=== PATIENT | female | born 1975 | race African-American/Black ===

== ENCOUNTER 2022-12-01 10:58 | Emergency (ER) | payer OTHER, SELFPAY ==
--- NOTE | ~2022-12-01 | XR_ITS ---
Right Shoulder Technique: AP and scapular Y views were obtained. Clinical History: Pain Findings: No fracture or dislocation is seen. Osseous alignment is anatomic. The glenohumeral and acr omioclavicular joint spaces are preserved. Soft tissues are unremarkable. Impression: Unremarkable right shoulder radiographs. Reviewed, dictated and finalized at [facility]. 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
[2022-12-01 11:32] VITALS: BP 126/87; PULSE 85; RESP 18; TEMP 36.6; O2SAT 100
--- NOTE | 2022-12-01 12:10 | ED.UPPEXIN ---
HPI - Extremity Injury (Upper) General Chief Complaint: Extremity Injury, Upper Stated Complaint: rt shoulder pain Source: patient Mode of arrival: ambulatory Limitations: no limitations History of Present Illness HPI narrative: 47-year-old female presents to [facility] with complaints of pain to her right shoulder radiating down her right arm for the past 2 weeks. Patient reports that she has intermittent numbness and tingling down her right arm. Patient denies injury to her arm. Patient has been taking [id number] ibuprofen and applying Biofreeze with minimal relief. Patient denies swelling, bruising, erythema. Patient reports that she has a primary care provider MD complaint: injury to: right and shoulder Onset (ago): week(s) (2) Other Extremity Injury: Right: shoulder Relieving factors: none Exacerbating factors: movement of extremity Associated symptoms: denies other symptoms Related Data Allergies Allergy/AdvReac Type Severity Reaction Status Date / Time No Known Allergies Allergy Verified 12/01/22 11:42 Review of Systems Constitutional: Constitutional: Denies fever(s) and Denies weakness ENT: Denies dizziness and Denies epistaxis Respiratory: Respiratory: Denies cough and Denies wheezing Gastrointestinal: Gastrointestinal: Denies diarrhea, Denies nausea and Denies vomiting Musculoskeletal: Musculoskeletal: Reports arthralgias Comments: Right shoulder pain Integumentary/Breasts: Skin/Breast: Denies pruritus, Denies erythema, Denies rash and Denies skin ulcer Neurologic: Denies vertigo and Denies dizziness PMFSH Comments At time of signature, I agree with nursing past medical, surgical, social and family history. There is no relevant family history pertinent to the presenting complaint. Exam Const: General: healthy appearing and no acute distress Nutritional Appearance: well nourished Orientation/consciousness: patient oriented x3 Limitations: no limitations Eyes: Conjunctivae: conjunctivae normal Neck: Neck: normal visual inspection Chest: Chest palpation & inspection: normal inspection of the chest Resp: Effort & Inspection: normal respiratory effort and not labored Auscultation: clear to auscultation bilaterally, no crackles, no rales, no rhonchi and no wheezes Cardio: Rate: regular rate Rhythm: regular rhythm Heart sounds: no murmurs Skin: General skin exam: normal color Rashes: no rashes Neuro: General: patient oriented x3, moves all extremities, no meningeal signs and no focal motor deficits Cranial nerves: Yes Nystagmus not present Speech: normal speech Extrem: General: normal to inspection, no clubbing, cyanosis or edema and no pedal edema Other: Full range of motion of the right shoulder. Pulses are within normal limits. Patient reports increased pain with range of motion to her right arm. Hand grasps are equal and strong. Psych: Affect: normal affect Attitude: cooperative Course Course Level of Care: Express Care Visit Vital Signs Vital signs: Vital Signs Temperature 36.6 C 12/01/22 11:32 Pulse Rate 85 12/01/22 11:32 Respiratory Rate 18 12/01/22 11:32 Blood Pressure 126/87 12/01/22 11:32 Pulse Oximetry 100 12/01/22 11:32 Oxygen Delivery Room Air 12/01/22 11:32 Temperature 36.6 C 12/01/22 11:32 Pulse Rate 85 12/01/22 11:32 Respiratory Rate 18 12/01/22 11:32 Blood Pressure 126/87 12/01/22 11:32 Pulse Oximetry 100 12/01/22 11:32 Oxygen Delivery Room Air 12/01/22 11:32 MDM - Extremity Injury (Upper) MDM Narrative Medical decision making narrative: Why surfaces the patient. Encouraged patient to establish care with local primary care provider as soon as possible to follow-up on chronic shoulder pain or to follow up with local orthopedist to discuss symptoms. Instructed patient to monitor symptoms closely and proceed to the emergency room if symptoms worsen Differential Diagnosis Differential diagnosis: Likely ot
== END 2022-12-01 12:59 | disposition home or self-care (01) ==
PROVIDERS: Emergency Provider Nurse Practitioner Family
DX: M25.511 Pain in right shoulder (principal)
CPT/HCPCS: 73030; 99203; G0463

== ENCOUNTER 2023-02-06 15:50 | Outpatient (CLI) | payer OTHER, SELFPAY ==
--- NOTE | ~2023-02-06 | XR_ITS ---
Left Knee Technique: AP, lateral, and sunrise views were obtained. Clinical History: Effusion Findings: No fracture or dislocation is seen. Osseous alignment is anatomic. Joint spaces are preserv ed without degenerative or erosive change. Soft tissues are unremarkable. No joint effusion is seen. Impression: Unremarkable left knee radiographs. Reviewed, dictated and finalized at location . Impression: Unremarkable left knee radiographs.
--- NOTE | ~2023-02-06 | XR_ITS ---
Right Knee Technique: AP, lateral, and sunrise views were obtained. Clinical History: Effusion Findings: No fracture or dislocation is seen. Osseous alignment is anatomic. Joint spaces are preserv ed without degenerative or erosive change. Soft tissues are unremarkable. No joint effusion is seen. Impression: Unremarkable right knee radiographs. Reviewed, dictated and finalized at location . Impression: Unremarkable right knee radiographs.
[2023-02-06 18:02] LABS: Hemoglobin A1C 5.5 % (<5.7)
[2023-02-06 18:08] LABS: Alanine Aminotransferase 31 U/L (6-35); Albumin Level 4.3 g/dL (3.5-5.1); Alkaline Phosphatase 77 U/L (38-126); Anion Gap 7 mmol/L (8-16); Aspartate Amino Transferase 33 U/L (14-36); Blood Urea Nitrogen 13 mg/dL (7-17); Calcium 9.5 mg/dL (8.4-10.2); Carbon Dioxide 25 mmol/L (22-30); Chloride 106 mmol/L (98-107); Cholesterol 222 mg/dL (0-200); Estimated Glomerular Filt Rate > 60; Glucose 84 mg/dL (65-110); HDL Direct 44 mg/dL; Sodium 138 mmol/L (137-145); Triglycerides 160 mg/dL (<150)
[2023-02-06 18:12] LABS: LDL Cholesterol Direct 110 mg/dL
[2023-02-06 18:17] LABS: Bilirubin,Total 0.5 mg/dL (0.2-1.3)
[2023-02-06 18:30] LABS: Thyroid Stimulating Hormone 0.347 uIU/mL (0.465-4.680)
[2023-02-11 04:56] LABS: FSH 114.1 mIU/mL (***); LH 50.6 mIU/mL (***); Progesterone 0.3 ng/mL (***)
[2023-02-11 16:28] LABS: Testosterone Free 1.6 pg/mL (0.1-6.4); Testosterone Total 13 ng/dL (2-45)
[2023-02-15 22:53] LABS: Estrogen 106.9 pg/mL
== END 2023-02-06 15:51 | disposition home or self-care (01) ==
PROVIDERS: PCP Family Medicine; Visit Provider Family Medicine
DX: Z00.00 Encounter for general adult medical examination without abnormal findings (principal); F32.A Depression, unspecified; F41.9 Anxiety disorder, unspecified; E66.9 Obesity, unspecified; M25.469 Effusion, unspecified knee; M25.569 Pain in unspecified knee
CPT/HCPCS: 36415; 73562; 80053; 80061; 82672; 83001; 83002; 83036; 84144; 84402; 84403; 84443

== ENCOUNTER 2023-02-10 10:32 | Outpatient (CLI) | payer OTHER, SELFPAY ==
--- NOTE | ~2023-02-10 | XR_ITS ---
EXAMINATION: XR hip LT 2V w AP pelvis INDICATION: Left hip effusion TECHNIQUE: AP view the pelvis and two views of the left hip are obtained. COMPARISON: None available FINDINGS: There are surgical changes of the left iliac wing. The femoral heads are well-seated in the ir acetabula. There is no fracture. No abnormal joint space widening is identified. IMPRESSION: 1. No acute osseous abnormality. Reviewed, dictated and finalized at location L.
== END 2023-02-10 10:33 | disposition home or self-care (01) ==
LOC: ANHBWCIMG 10:34
PROVIDERS: PCP Family Medicine; Visit Provider Family Medicine
DX: M25.452 Effusion, left hip (principal)
CPT/HCPCS: 73502

== ENCOUNTER 2023-03-19 00:05 | Day surgery (SDC) | payer OTHER, SELFPAY ==
[2023-03-02 11:50] VITALS: BMI 38.9
[2023-03-19 09:24] VITALS: BP 111/91; PULSE 76; RESP 18; TEMP 36.3; O2SAT 100
--- NOTE | 2023-03-19 09:36 | PM.HPGS ---
History of Present Illness History of Present Illness Consent: Risks, benefits, and alternatives have been discussed and questions answered. Patient agrees to proceed with procedure. Chief complaint: GERD, neoplasm screening Narrative: Shala Gan is a 48 year old female Presents for both colonoscopy and EGD. Patient desires neoplasia screening colonoscopy. She reports her weight appetite and bowel movements are normal. She denies abdominal pain. She has had no bleeding. Family history is noncontributory. Additionally patient complains of occasional heartburn. Apparently this been present for several years. She was started on omeprazole 20mg p.o. daily over the last several weeks and this seems to control her heartburn. Patient denies any dysphagia, bleeding or weight loss. Review of Systems Review of Systems: Review of systems noncontributory. [facility] Past Medical History Medical History Anxiety Social History Social History Smoking status: Former smoker Tobacco type: e-cigarettes/vaping Alcohol intake: current Alcohol use details: occasional Substance use: former Substance use type: marijuana Lack of Transportation: No Lack of Food: Sometimes True Current Housing: I Do Not Have Housing Concerned About Future Housing: No Difficulty Paying Gas/Electric Bills: No Difficulty Paying for Meds: No Currently Unemployed: No Education: High School Diploma/GED Difficulty w/ Childcare or Family Care: No Living arrangements: with family Spiritual care concerns: No Meds Home Medications and Allergies Home Medications Medication Instructions Recorded Confirmed Type fexofenadine 180 mg tablet 180 mg PO DAILY #90 tabs 02/06/23 03/02/23 Rx (Purnima Allergy) omeprazole 20 mg capsule,delayed 20 mg PO DAILY #90 caps 02/06/23 03/02/23 Rx release ascorbic acid (vitamin C) 500 mg 500 mg PO DAILY 03/02/23 03/02/23 History tablet mecobalamin (vitamin B12) 2,500 2,500 mcg PO DAILY 03/02/23 03/02/23 History mcg chewable tablet phentermine 37.5 mg capsule 37.5 mg PO DAILY #30 caps 03/11/23 03/19/23 Rx topiramate 25 mg tablet 25 mg PO DAILY #30 tabs 03/11/23 03/19/23 Rx Allergies Allergy/AdvReac Type Severity Reaction Status Date / Time No Known Allergies Allergy Verified 03/19/23 09:22 Vital Signs Vital Signs - 24 hr 03/19/23 09:24 Temperature 97.4 F L Pulse Rate 76 Respiratory Rate 18 Blood Pressure 111/91 H Pulse Oximetry 100 Oxygen Delivery Room Air Exam Narrative: Physical exam reveals patient to be alert. Vital signs stable. HEENT exam is unremarkable. Patient is anicteric. Lungs are clear to auscultation and percussion. Heart is without murmur or extra sounds. Abdomen patient is overweight. She has a small ventral hernia. Extremities are without clubbing cyanosis or edema. Assessment and Plan Assessment and plan (1) GERD (gastroesophageal reflux disease): Code(s): K21.9 - Gastro-esophageal reflux disease without esophagitis Status: Acute Assessment and Plan: patient is stable GE reflux disease that has been present for several years. Plan EGD to assess and exclude Jaramillo's esophagus. (2) Encounter for screening colonoscopy: Code(s): Z12.11 - Encounter for screening for malignant neoplasm of colon Status: Acute Assessment and Plan: Patient presents for screening colonoscopy. She appears to be at average risk for colon polyps.
[2023-03-19] MEDS: LACTATED RINGERS 1,000 ML 150 ML IV CONT (09:38)
--- NOTE | 2023-03-19 10:23 | P.PNAN_ITS ---
Anes - Initial Pre Proc Eval Procedure: Operation Date: 03/19/23 10:45 Proposed Procedures p Esophagogastroduodenoscopy & Screening Colonoscopy - Angelito Robertson MD Date/Time: 03/19/23 10:23 Surgeon: Angelito Robertson MD Pre Op Diagnosis: GERD, neoplasm screening Patient Data Age: 48 Gender: F Height: 1.63 m Weight: 103.6 kg Last Vital Signs Temp 97.4 F L 03/19/23 09:24 Pulse 76 03/19/23 09:24 Resp 18 03/19/23 09:24 BP 111/91 H 03/19/23 09:24 Pulse Ox 100 03/19/23 09:24 O2 Del Method Room Air 03/19/23 09:24 Allergies Allergy/AdvReac Type Severity Reaction Status Date / Time No Known Allergies Allergy Verified 03/19/23 09:22 Home Medications Medication Instructions Recorded Confirmed Type fexofenadine 180 mg tablet 180 mg PO DAILY #90 tabs 02/06/23 03/02/23 Rx (Purnima Allergy) omeprazole 20 mg capsule,delayed 20 mg PO DAILY #90 caps 02/06/23 03/02/23 Rx release ascorbic acid (vitamin C) 500 mg 500 mg PO DAILY 03/02/23 03/02/23 History tablet mecobalamin (vitamin B12) 2,500 2,500 mcg PO DAILY 03/02/23 03/02/23 History mcg chewable tablet phentermine 37.5 mg capsule 37.5 mg PO DAILY #30 caps 03/11/23 03/19/23 Rx topiramate 25 mg tablet 25 mg PO DAILY #30 tabs 03/11/23 03/19/23 Rx Patient hx anesthesia problems: none Family hx anesthesia problems: none Results Review: All pre-operative results and documents have been reviewed as part of the pre- operative evaluation. [facility] Past Medical History Medical History Anxiety Social History Social History Smoking status: Former smoker Tobacco type: e-cigarettes/vaping Alcohol intake: current Alcohol use details: occasional Substance use: former Substance use type: marijuana Lack of Transportation: No Lack of Food: Sometimes True Current Housing: I Do Not Have Housing Concerned About Future Housing: No Difficulty Paying Gas/Electric Bills: No Difficulty Paying for Meds: No Currently Unemployed: No Education: High School Diploma/GED Difficulty w/ Childcare or Family Care: No Living arrangements: with family Spiritual care concerns: No Anes - Eval Final PreProcedure Day of Procedure 03/19/23 10:23 Patient weight: morbidly obese Heart: regular rate and rhythm Lungs: clear to auscultation Airway: Mallampati scale class III Neurological: alert and oriented Last oral intake: >/= 8 hours ASA classification: III Emergent: no Anesthetic plan: proceed Anesthesia type and monitoring: general GIVS and standard monitoring Results Review: All pre-operative results and documents have been reviewed as part of the pre- operative evaluation. Informed Consent: The patient's anesthetic plan and its attendant risks and benefits were discussed with the patient/family/POA. Questions were solicited and answers provided to the satisfaction of the patient/family/POA.
[2023-03-19 11:08] VITALS: BP 109/73; PULSE 97; RESP 16; O2SAT 99
[2023-03-19 11:18] VITALS: BP 117/83; PULSE 77; RESP 23; O2SAT 99
[2023-03-19 11:28] VITALS: BP 140/89; PULSE 79; RESP 16; O2SAT 100
== END 2023-03-19 11:48 | disposition home or self-care (01) ==
PROVIDERS: PCP Family Medicine; Visit Provider Internal Medicine Gastroenterology
PROC: 0DJ08ZZ Inspection of Upper Intestinal Tract, Via Natural or Artificial Opening Endoscopic (ICD-10-PCS; CPT 43235; principal; 2023-03-19 10:45)
DX: Z12.11 Encounter for screening for malignant neoplasm of colon (principal); D12.5 Benign neoplasm of sigmoid colon; K64.8 Other hemorrhoids; K57.30 Diverticulosis of large intestine without perforation or abscess without bleeding; K21.00 Gastro-esophageal reflux disease with esophagitis, without bleeding; K44.9 Diaphragmatic hernia without obstruction or gangrene; Q39.4 Esophageal web; K29.80 Duodenitis without bleeding; Z87.891 Personal history of nicotine dependence; E66.01 Morbid (severe) obesity due to excess calories; Z68.39 Body mass index [BMI] 39.0-39.9, adult
CPT/HCPCS: 45385; 43450; 43239; 87081; 88305; J2704; J7120

== ENCOUNTER 2023-04-24 11:07 | Outpatient (CLI) | payer OTHER, SELFPAY ==
[2023-04-24 12:31] LABS: Free T4 Free Thyroxine 1.22 ng/mL (0.78-2.19)
== END 2023-04-24 11:08 | disposition home or self-care (01) ==
LOC: ANHLAB 11:09
PROVIDERS: PCP Family Medicine; Visit Provider Family Medicine
DX: R79.89 Other specified abnormal findings of blood chemistry (principal)
CPT/HCPCS: 36415; 84439; 84443

== ENCOUNTER 2023-05-07 13:00 | Outpatient (CLI) | payer OTHER, SELFPAY ==
[2023-05-07 13:32] LABS: Hematocrit 41.7 % (37.0-47.0); Hemoglobin 12.9 g/dL (12.0-15.0); Mean Corpuscular HGB Conc 30.9 g/dl (32-36); Mean Corpuscular Hemoglobin 26.1 pg (26-34); Mean Corpuscular Volume 84.2 fl (80-100); Mean Platelet Volume 10.8 fl (7.4-10.4); Platelet Count Result 275 k/mm3 (150-375); Red Blood Count 4.95 M/mm3 (4.2-5.4); Red Cell Distribution Width 14.6 % (11.5-14.5); White Blood Count 4.4 K/mm3 (4.5-10.0)
[2023-05-07 13:38] LABS: Alanine Aminotransferase 36 U/L (6-35); Albumin Level 4.2 g/dL (3.5-5.1); Alkaline Phosphatase 75 U/L (38-126); Anion Gap 1 mmol/L (8-16); Aspartate Amino Transferase 28 U/L (14-36); Bilirubin,Total 0.4 mg/dL (0.2-1.3); Blood Urea Nitrogen 10 mg/dL (7-17); Calcium 9.5 mg/dL (8.4-10.2); Carbon Dioxide 31 mmol/L (22-30); Chloride 106 mmol/L (98-107); Estimated Glomerular Filt Rate > 60; Glucose 91 mg/dL (65-110); Potassium 4.4 mmol/L (3.4-5.0); Sodium 138 mmol/L (137-145)
[2023-05-07 14:09] LABS: Thyroid Stimulating Hormone 0.282 uIU/mL (0.465-4.680)
[2023-05-07 14:38] LABS: Vitamin D 25 Hydroxy 28.2 ng/mL
== END 2023-05-07 13:01 | disposition home or self-care (01) ==
LOC: ANHLAB 13:02
PROVIDERS: PCP Family Medicine; Visit Provider Family Medicine
DX: R53.83 Other fatigue (principal)
CPT/HCPCS: 36415; 80053; 82306; 84443; 85027

== ENCOUNTER 2023-05-13 10:01 | Outpatient (CLI) | payer OTHER, SELFPAY ==
[2023-05-13 10:27] LABS: Hematocrit 39.7 % (37.0-47.0); Hemoglobin 12.4 g/dL (12.0-15.0); Mean Corpuscular HGB Conc 31.2 g/dl (32-36); Mean Corpuscular Hemoglobin 25.7 pg (26-34); Mean Corpuscular Volume 82.4 fl (80-100); Mean Platelet Volume 10.9 fl (7.4-10.4); Platelet Count Result 232 k/mm3 (150-375); Red Blood Count 4.82 M/mm3 (4.2-5.4); Red Cell Distribution Width 14.5 % (11.5-14.5); White Blood Count 4.4 K/mm3 (4.5-10.0)
[2023-05-13 10:40] LABS: Alanine Aminotransferase 39 U/L (6-35); Alkaline Phosphatase 66 U/L (38-126); Aspartate Amino Transferase 39 U/L (14-36); Bilirubin,Total 0.3 mg/dL (0.2-1.3)
[2023-05-13 11:04] LABS: Free T4 Free Thyroxine 1.27 ng/mL (0.78-2.19)
[2023-05-16 06:08] LABS: Thyroid Peroxidase Antibodies <1 IU/mL (<9)
== END 2023-05-13 10:02 | disposition home or self-care (01) ==
LOC: ANHLAB 10:04
PROVIDERS: PCP Family Medicine; Visit Provider Family Medicine
DX: R79.89 Other specified abnormal findings of blood chemistry (principal); D72.819 Decreased white blood cell count, unspecified; R53.83 Other fatigue
CPT/HCPCS: 36415; 80076; 84439; 85027; 86376

== ENCOUNTER 2023-06-10 10:26 | Outpatient (CLI) | payer OTHER, SELFPAY ==
[2023-06-10 11:27] LABS: Basophils Absolute Auto 0.1 K/mm3 (0.0-0.1); Basophils Percent Auto 1.5 % (0.2-1.2); Eosinophils Absolute Auto 0.2 K/mm3 (0-0.3); Eosinophils Percent Auto 3.4 % (0-4.4); Hematocrit 43.8 % (37.0-47.0); Hemoglobin 13.4 g/dL (12.0-15.0); Immature Granulocyte Absolute 0.03 K/mm3 (0.00-0.031); Immature Granulocyte Percent A 0.6 % (0-0.5); Lymphocytes Absolute Auto 1.45 K/mm3 (0.9-3.2); Mean Corpuscular HGB Conc 30.6 g/dl (32-36); Mean Platelet Volume 11.3 fl (7.4-10.4); Monocytes Absolute Auto 0.5 K/mm3 (0.1-0.6); Monocytes Percent Auto 9.6 % (2.6-8.5); Neutrophils Absolute Auto 2.5 K/mm3 (1.3-6.7); Neutrophils Percent Auto 53.9 % (45.5-73.1); Platelet Count Result 291 k/mm3 (150-375); Red Blood Count 5.15 M/mm3 (4.2-5.4); Red Cell Distribution Width 14.5 % (11.5-14.5); White Blood Count 4.7 K/mm3 (4.5-10.0)
[2023-06-10 11:40] LABS: Alanine Aminotransferase 41 U/L (6-35); Albumin Level 4.1 g/dL (3.5-5.1); Alkaline Phosphatase 83 U/L (38-126); Aspartate Amino Transferase 36 U/L (14-36); Bilirubin,Total 0.4 mg/dL (0.2-1.3)
[2023-06-10 12:12] LABS: Hepatitis B Surface Antigen Negative (Negative)
[2023-06-10 12:18] LABS: HAV RESULT Negative (Negative); Hepatitis B Core IgM Result Negative (Negative)
[2023-06-10 12:29] LABS: Hepatitis C Virus Antibody Negative (Negative)
== END 2023-06-10 10:27 | disposition home or self-care (01) ==
LOC: ANHLAB 10:27
PROVIDERS: PCP Family Medicine; Visit Provider Family Medicine
DX: R79.89 Other specified abnormal findings of blood chemistry (principal); R74.8 Abnormal levels of other serum enzymes; D72.819 Decreased white blood cell count, unspecified
CPT/HCPCS: 36415; 80074; 80076; 84443; 85025

== ENCOUNTER 2023-06-25 10:08 | Outpatient (CLI) | payer OTHER, SELFPAY ==
--- NOTE | ~2023-06-25 | MM_ITS ---
EXAMINATION: MM screening roverto BI w sonia HISTORY: Screening mammogram TECHNIQUE: Craniocaudal and mediolateral oblique 3-D tomosynthesis images were obtained and synthetic 2-D images were generated. CAD analysis was submitted and interpreted. COMPARISON: No prior mammogram is available for comparison at this institution. BREAST PARENCHYMAL COMPOSITION: There are scattered areas of fibroglandular density. FINDINGS: There is no evidence of suspicious mass, calcification, or architectural distortion to sugg est malignancy in either breast. There has been no suspicious interval change. IMPRESSION: 1. No mammographic evidence of malignancy. 2. Recommend routine screening mammography in one year. BI-RADS Category 1: Negative Reviewed, dictated and finalized at location A.
== END 2023-06-25 10:09 | disposition home or self-care (01) ==
PROVIDERS: PCP Family Medicine; Visit Provider Family Medicine
DX: Z12.31 Encounter for screening mammogram for malignant neoplasm of breast (principal)
CPT/HCPCS: 77063; 77067

== ENCOUNTER 2023-07-06 09:36 | Outpatient (CLI) | payer OTHER, SELFPAY ==
--- NOTE | ~2023-07-06 | US_ITS ---
US abdomen limited INDICATION: Abnormal levels of serum enzymes PROCEDURE: Realtime right upper abdominal ultrasound. COMPARISON: No prior studies for comparison. FINDINGS: The pancreas is normal without focal mass or pancreatic ductal dilation. Liver echotexture is normal without focal mass or intrahepatic biliary dilatation. There is normal directional flow i n the portal vein. The gallbladder is normal without stones, gallbladder wall thickening or pericholecystic fluid. Comm on bile duct measures 4 mm. No sonographic Patiño's sign. IMPRESSION: 1: Normal limited abdominal ultrasound. Reviewed, dictated and finalized at location A.
== END 2023-07-06 09:37 | disposition home or self-care (01) ==
PROVIDERS: PCP Family Medicine; Visit Provider Family Medicine
DX: R74.8 Abnormal levels of other serum enzymes (principal)
CPT/HCPCS: 76705

== ENCOUNTER 2023-08-04 09:11 | Outpatient (CLI) | payer OTHER, SELFPAY ==
--- NOTE | 2023-08-25 15:07 | WPDHOMESLEEP ---
Sleep Study - Home Unattended Date of Study: 08/04/23 Ordering Provider: Benito Álvarez MD Interpreting Provider: Radha Palacios DO Home Sleep Study Type: Watch PAT Height: 1.65 m Weight: 105.233 kg Body Mass Index: 38.6 Neck Circumference (inches): 14 [place]: 8 Reason for Sleep Study Snoring Sleep History The patient is a 48-year-old female with seasonal allergies, GERD and history of tobacco use that had a sleep study ordered by her primary care for evaluation of sleep apnea. The patient did not fill out the sleep questionnaire packet. [facility] Past Medical History Medical History Anxiety Social History Social History Smoking status: Former smoker Tobacco type: e-cigarettes/vaping Alcohol intake: current Alcohol use details: occasional Substance use: former Substance use type: marijuana Lack of Transportation: No Lack of Food: Sometimes True Current Housing: I Do Not Have Housing Concerned About Future Housing: No Difficulty Paying Gas/Electric Bills: No Difficulty Paying for Meds: No Currently Unemployed: No Education: High School Diploma/GED Difficulty w/ Childcare or Family Care: No Living arrangements: with family Spiritual care concerns: No Medications Home Medications Medication Instructions Recorded Confirmed Type fexofenadine 180 mg tablet 180 mg PO DAILY #90 tabs 02/06/23 07/14/23 Rx (Purnima Allergy) omeprazole 20 mg capsule,delayed 20 mg PO DAILY #90 caps 02/06/23 07/14/23 Rx release ascorbic acid (vitamin C) 500 mg 500 mg PO DAILY 03/02/23 07/14/23 History tablet mecobalamin (vitamin B12) 2,500 2,500 mcg PO DAILY 03/02/23 07/14/23 History mcg chewable tablet hydroxyzine HCl 25 mg tablet 25 mg PO BID PRN insomnia #90 tabs 04/06/23 07/14/23 Rx azelastine 137 mcg (0.1 %) nasal 137 mcg (0.137 mL) intranasal Q12H 04/24/23 07/14/23 Rx spray aerosol #30 mL cetirizine 10 mg tablet (Zyrtec) 10 mg PO DAILY #90 tabs 04/24/23 07/14/23 Rx ipratropium bromide 21 mcg (0.03 2 spray intranasal BID #30 mL 04/24/23 07/14/23 Rx %) nasal spray montelukast 10 mg tablet 10 mg PO DAILY #90 tabs 04/24/23 07/14/23 Rx (Singulair) albuterol sulfate 90 mcg/actuation 1 inh inhalation Q4H PRN shortness 06/10/23 07/14/23 Rx aerosol inhaler of breath or wheezing #8.5 grams phentermine 37.5 mg capsule 37.5 mg PO DAILY #30 caps 07/21/23 Rx conj estrogen-medroxyprogesterone 1 tablet PO DAILY #28 tabs 08/03/23 Rx 0.3 mg-1.5 mg tablet (Prempro) Sleep Procedure The sleep study was completed using ShowbieT a technically adequate device with seven channels: peripheral arterial tone, actigraphy, body position, snore, respiratory movement, pulse oximetry, sleep staging, and heart rate. Prior to using the device, the patient received verbal and written instructions for its application and was provided with the help desk phone number for additional telephonic instruction with 24-hour availability of qualified personnel to answer questions. The study was scored using CMS guidelines. Sleep Architecture The patient had a total recording time of 7 hours 30 minutes and a total sleep time of 6 hours 11 minutes. The sleep efficiency was 82.47%. The sleep latency was 21 minutes and the REM latency was 54 minutes. The patient had 10 awakenings. The patient spent 57.37% of total sleep time in light sleep, 16.41% of total sleep time in deep sleep and 26.22% of total sleep time in REM sleep. The patient spent 215.3 minutes, 57.9% of total sleep time in the supine position. Respiratory Analysis The patient had an overall AHI of 1.2 and a central apnea index of 0. The REM AHI was 2.1. Kalpesh Decker respirations were not seen. Oximetry Data The patient had an average oxygen saturation of 93% with a minimum of 90% and a maximum of 99%. The patient had 6 desaturations that
[2023-08-25 15:12] VITALS: BMI 38.6
== END 2023-08-05 13:46 | disposition home or self-care (01) ==
LOC: ANHCSM 09:12
PROVIDERS: PCP Family Medicine; Visit Provider Family Medicine
DX: G47.30 Sleep apnea, unspecified (principal); R53.83 Other fatigue; E66.9 Obesity, unspecified; Z86.69 Personal history of other diseases of the nervous system and sense organs
CPT/HCPCS: 95800

== ENCOUNTER 2024-01-21 08:51 | Outpatient (CLI) | payer OTHER, SELFPAY ==
[2024-01-21 09:24] LABS: Hematocrit 47.5 % (37.0-47.0); Hemoglobin 14.4 g/dL (12.0-15.0); Mean Corpuscular HGB Conc 30.3 g/dl (32-36); Mean Corpuscular Hemoglobin 25.5 pg (26-34); Mean Corpuscular Volume 84.2 fl (80-100); Mean Platelet Volume 10.6 fl (7.4-10.4); Platelet Count Result 299 k/mm3 (150-375); Red Blood Count 5.64 M/mm3 (4.2-5.4); White Blood Count 4.4 K/mm3 (4.5-10.0)
[2024-01-21 09:37] LABS: Alanine Aminotransferase 33 U/L (6-35); Albumin Level 4.5 g/dL (3.5-5.1); Alkaline Phosphatase 80 U/L (38-126); Anion Gap 5 mmol/L (4-12); Aspartate Amino Transferase 33 U/L (14-36); Bilirubin,Total 0.4 mg/dL (0.2-1.3); Blood Urea Nitrogen 12 mg/dL (7-17); Calcium 10.1 mg/dL (8.4-10.2); Carbon Dioxide 29 mmol/L (22-30); Chloride 108 mmol/L (98-107); Cholesterol 282 mg/dL (0-200); Estimated Glomerular Filt Rate > 60; Glucose 100 mg/dL (65-110); HDL Direct 55 mg/dL; Potassium 4.4 mmol/L (3.4-5.0); Sodium 142 mmol/L (137-145); Triglycerides 132 mg/dL (<150)
[2024-01-21 09:48] LABS: LDL Cholesterol Direct 150 mg/dL
== END 2024-01-21 08:52 | disposition home or self-care (01) ==
LOC: ANHLAB 08:53
PROVIDERS: PCP Family Medicine; Visit Provider Family Medicine
DX: F32.A Depression, unspecified (principal); F41.9 Anxiety disorder, unspecified; J30.2 Other seasonal allergic rhinitis; K21.9 Gastro-esophageal reflux disease without esophagitis; R53.83 Other fatigue; R74.8 Abnormal levels of other serum enzymes; R79.89 Other specified abnormal findings of blood chemistry; Z00.00 Encounter for general adult medical examination without abnormal findings; Z86.69 Personal history of other diseases of the nervous system and sense organs
CPT/HCPCS: 36415; 80053; 80061; 85027

== ENCOUNTER 2024-05-27 12:07 | Outpatient (CLI) | payer OTHER, SELFPAY ==
--- NOTE | ~2024-05-27 | MMUS_ITS ---
EXAMINATION: MM diagnostic roverto BI w sonia, US breast LT limited HISTORY: Palpable left breast lump TECHNIQUE: Additional 3-D tomosynthesis images of the breasts were performed and synthetic 2-D images were generated. CAD analysis was submitted and interpreted. High resolution Limited left breast ultr asound was performed. COMPARISON: 06/25/2023 BREAST PARENCHYMAL COMPOSITION: Not dense: There are scattered areas of fibroglandular density. FINDINGS: MAMMOGRAPHIC FINDINGS: There are no suspicious masses, calcifications or architectural distortion in the either breast to lobo ggest malignancy. ULTRASOUND: Limited ultrasound of the left breast/chest wall: Normal heterogeneous echotexture without focal ligia d or cystic mass. IMPRESSION: 1. No evidence for malignancy in either breast. 2. Routine yearly screening mammogram and regular clinical breast examination are recommended. BI-RADS Category 1: Negative Reviewed, dictated and finalized at location B. IMPRESSION: 1. No evidence for malignancy in either breast. 2. Routine yearly screening mammogram and regular clinical breast examination a re recommended. BI-RADS Category 1: Negative
== END 2024-05-27 12:08 | disposition home or self-care (01) ==
LOC: ANHIMG 12:07
PROVIDERS: PCP Family Medicine; Visit Provider Family Medicine
DX: N64.4 Mastodynia (principal)
CPT/HCPCS: 76642; 77062; 77066; G0279

== ENCOUNTER 2024-08-15 10:11 | Outpatient (CLI) | payer OTHER, SELFPAY ==
[2024-08-15 10:58] LABS: Hematocrit 42.5 % (37.0-47.0); Hemoglobin 13.2 g/dL (12.0-15.0); Mean Corpuscular HGB Conc 31.1 g/dl (32-36); Mean Corpuscular Hemoglobin 26.1 pg (26-34); Mean Platelet Volume 11.1 fl (7.4-10.4); Platelet Count Result 269 k/mm3 (150-375); Red Blood Count 5.06 M/mm3 (4.2-5.4); Red Cell Distribution Width 14.7 % (11.5-14.5); White Blood Count 4.4 K/mm3 (4.5-10.0)
[2024-08-15 11:12] LABS: Alanine Aminotransferase 40 U/L (6-35); Albumin Level 4.3 g/dL (3.5-5.1); Alkaline Phosphatase 72 U/L (38-126); Anion Gap 8 mmol/L (4-12); Aspartate Amino Transferase 35 U/L (14-36); Bilirubin,Total 0.5 mg/dL (0.2-1.3); Blood Urea Nitrogen 12 mg/dL (7-17); Calcium 9.6 mg/dL (8.4-10.2); Carbon Dioxide 28 mmol/L (22-30); Chloride 107 mmol/L (98-107); Estimated Glomerular Filt Rate > 60; Glucose 85 mg/dL (65-110); Potassium 3.8 mmol/L (3.4-5.0); Sodium 143 mmol/L (137-145)
[2024-08-15 11:43] LABS: Thyroid Stimulating Hormone 0.631 uIU/mL (0.465-4.680)
== END 2024-08-15 10:12 | disposition home or self-care (01) ==
LOC: ANHLAB 10:13
PROVIDERS: PCP Family Medicine; Visit Provider Family Medicine
DX: Z00.00 Encounter for general adult medical examination without abnormal findings (principal); R74.8 Abnormal levels of other serum enzymes; R53.83 Other fatigue; R79.89 Other specified abnormal findings of blood chemistry; E66.9 Obesity, unspecified; F41.9 Anxiety disorder, unspecified; F32.A Depression, unspecified; K21.9 Gastro-esophageal reflux disease without esophagitis; J30.2 Other seasonal allergic rhinitis
CPT/HCPCS: 36415; 80053; 84443; 85027

== ENCOUNTER 2025-08-23 10:38 | Outpatient (CLI) | payer OTHER, SELFPAY ==
[2025-08-23 13:45] LABS: Hematocrit 46.6 % (37.0-47.0); Hemoglobin 14.6 g/dL (12.0-15.0); Immature Granulocyte Percent A 0.4 % (0-0.5); Lymphocytes Absolute Auto 1.43 K/mm3 (0.9-3.2); Mean Corpuscular HGB Conc 31.3 g/dl (32-36); Mean Corpuscular Hemoglobin 26.2 pg (26-34); Mean Corpuscular Volume 83.5 fl (80-100); Nucleated Red Blood Cells Absolute Auto 0.000 K/mm3 (0.0-0.012); Nucleated Red Blood Cells Perc 0.0 % (0.0-0.2); Platelet Count Result 320 k/mm3 (150-375); Red Blood Count 5.58 M/mm3 (4.2-5.4); White Blood Count 5.0 K/mm3 (4.5-10.0)
[2025-08-23 13:52] LABS: Alanine Aminotransferase 29 U/L (6-35); Albumin Level 4.7 g/dL (3.5-5.1); Alkaline Phosphatase 74 U/L (38-126); Anion Gap 8 mmol/L (4-12); Aspartate Amino Transferase 49 U/L (14-36); Bilirubin,Total 0.5 mg/dL (0.2-1.3); Blood Urea Nitrogen 14 mg/dL (7-17); Calcium 9.8 mg/dL (8.4-10.2); Carbon Dioxide 26 mmol/L (22-30); Chloride 104 mmol/L (98-107); Cholesterol 285 mg/dL (0-200); Estimated Glomerular Filt Rate 52; Glucose 83 mg/dL (65-110); HDL Direct 58 mg/dL; Potassium 4.2 mmol/L (3.4-5.0); Sodium 138 mmol/L (137-145); Total Protein 8.3 g/dL (6.3-8.2); Triglycerides 93 mg/dL (<150)
[2025-08-23 14:23] LABS: Thyroid Stimulating Hormone 0.408 uIU/mL (0.465-4.680)
[2025-08-23 14:42] LABS: Vitamin B12 624.0 pg/mL (239-931)
[2025-08-23 22:39] LABS: Iron 75 ug/dL (37-170)
[2025-08-23 22:49] LABS: Percent Iron Saturation 25 % (20-50)
[2025-08-23 23:21] LABS: Ferritin 48.90 ng/mL (6.24-137)
--- OUTSIDE RECORDS SUMMARY | 2025-08-24 10:16 | XMS_ITS | Clinical Summary ---
Author Organization [facility] al Address [address] [place] [address] Care Team Providers Care Coat Operator Name Role Phone Roel Pena MD Primary Care Provider + Allergies No known active allergies Medications No known medications Active Problems Problem Noted Date Diagnosed Date Essential hypertension 12/03/2020 Assessment & Plan (12/03/2020 11:27 AM SHORT STORY WRITER): Continue current Labs today Weight loss Diet and activity reviewed Left arm pain 12/03/2020 Assessment & Plan (12/03/2020 11:28 AM SHORT STORY WRITER): Suspect cervical radiculopathy, has had imaging at [facility] referral-if not improving will do cervical MRI Adnexal cyst 10/04/2018 Overview (10/04/2018): Added automatically from request for surgery [id number] Resolved Problems Problem Noted Date Diagnosed Date Resolved Date Vitamin D deficiency 12/03/2020 021 Pelvic mass in female 10/04/20182020 Overview (10/04/2018): Added automatically from request for surgery [id number] Eustachian tube dysfunction 08/12/2015 12/03/2020 Cerumen impaction 08/12/2015 12/03/2020 Ear pain 05/18/2014 12/03/2020 Knee pain 02/24/2011 12/03/2020 Surgical History Surgery Date Site/Laterality Comments [place] DELIVERY ONLY [place] - (Added by Conv) [place] TOTAL ABDOMINAL HYSTERECT W/WO RMVL TUBE OVARY Hysterectomy - (Added by Conv) CLOSED REDUCTION HIP DISLOCATION 10/19/1993 - 10/18/1994 Medical History Medical History Date Comments Vitamin D deficiency Vitamin D d eficiency - (Added by Conv) Breast lump Acid reflux Seasonal allergies Anxiety Sinusitis Family History Medical History Relation Name Comments Heart failure Mother Family history of congestive heart failure - (Added by TW Conv) Hypertension Mother Family history of hypertension - (Added by Conv) Kidney failure Mother Family histor y of renal failure - (Added by Conv) Stroke Other Family history of cerebrovascular accident (CVA) - (Added by Conv) Relation Name Status Comments Brother Alive Father Mother Other Sister Alive Social History Tobacco Use Types Packs/Day Years Used Date Smoking Tobacco: Former Cigarettes 0.5 23 1 998 - 10/19/2020 Smokeless Tobacco: Never Alcohol Use Standard Drinks/Week Comments Yes 0 (1 standard drink = 0.6 oz pur e alcohol) occ Comments No Sex and Gender Information Value Date Recorded Sex Assigned at Not on file Legal Sex Female 4:11 AM SHORT STORY WRITER Gender Identity Not on file Sexual Orientation Not on file Obstetrics History Para Term AB IAB SAB Ectopic Multiple Livin g Live Births 2 2 2 2 Date Outcome GA Total Labor Labor/2nd/3rd Weight Sex Type Anes PTL Rebekah A1 A5 Name Clin Term Term Last Filed Vital Signs Vital Sign Reading Time Taken Comments Blood Pressure 126/94 11/30/2020 10:18 AM SHORT STORY WRITER Pulse 105 11/30/2020 10:18 AM SHORT STORY WRITER Temperature 36.9 C (98.5 F) 01/03/2020 3:53 PM CDT Respiratory Rate 18 05/18/2019 2:07 PM CDT Oxygen Saturation 99% 11/30/2020 10:18 AM SHORT STORY WRITER Inhaled Oxygen Concentration - - Weight 97.3 kg (214 lb 6.4 oz) 11/30/2020 10:18 AM SHORT STORY WRITER Height 165.1 cm (5' 5) 11/30/2020 10:18 AM SHORT STORY WRITER Body Mass Index 35.68 11/30/2020 10:18 AM SHORT STORY WRITER Plan of Treatment Not on file Insurance CHOICE PLUS CHOICE PLUS CHOICE PLUS Care Teams Coat Operator Relationship Specialty Start Date End Date Roel Pena MD PCP - General Endocrinology Diabetes & Metabolism 11/26/20
--- OUTSIDE RECORDS SUMMARY | 2025-08-24 10:17 | XMS_ITS | Encounter Summary ---
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 Name Role Phone Yeison Springer MD Primary Care Provider [phone] Roel Pena MD Primary Care Provider + Reason for Referral * Diagnostic Imaging (Routine) - Closed Specialty Diagnoses / Procedures Referred By Contac t Referred To Contact Radiology Diagnoses Stomach discomfort Chest pain, unspecified SOB (shortness of breath) Procedures CT Chest Abdomen Pelvis WO Contrast Yeison Springer MD Phone: tel: fax: [address] [phone] Referral ID Status Reason Start Date Expiration Date Visits Re quested Visits Authorized [id number] Closed 09/14/2018 03/25/2020 1 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 Encounter Details Date Type Department Care Team (Late st Contact Info) Description 09/14/2018 Community Orders [facility] EpicCare Link Yeison Springer MD [address] [facility] [address] [place] [address] Stomach discomfort (Primary Dx); Chest pain, unspecified; SOB (shortness of breath) Social History Tobacco Use Types Packs/Day Years Used Date Smoking Tobacco: Former Comments Unknown Sex and Gender Information Value Date Recorded Sex Assigned at Not on file Legal Sex Female 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 Bilateral adnexal masses are incompletely characterized on this noncontrast examination, concerning for possible primary epithelial ovarian malignancy, and recommend further evaluation with pelvic ultrasound and/or MRI. 2. Postoperative changes of a subtotal hysterectomy. 3. No non-contrast enhanced CT abnormality to explain the patient's stomach discomfort. 4. Clear lungs. No abnormality to explain the patient's shortness of breath. Dictated by: Maxwell Gardner III, M.D. Electronically signed by: Promise Javier M.D. Narrative 09/16/2018 1:39 PM COMPOUNDING TECHNICIAN EXAMINATION: Computed tomography of the chest, abdomen and pelvis without intravenous contrast HISTORY: Stomach discomfort. TECHNIQUE: Transaxial computed tomographic images of the chest, abdomen and pelvis were obtained without intravenous contrast according to the standard protocol. COMPARISON: None available. FINDINGS: Chest: The lungs are clear without interstitial lung disease or focal consolidation. No suspicious pulmonary nodules seen. No pleural effusion or pneumothorax. No axillary, supraclavicular, hilar, or mediastinal lymphadenopathy. The heart is normal in size without pericardial effusion. The thoracic aorta and great vessels are normal course and caliber. The pulmonary arteries are normal in caliber. Abdomen/Pelvis: The liver is normal without biliary ductal dilation or focal lesion seen on this noncontrast examination. The gallbladder, adrenal glands, spleen, and pancreas are normal. The kidneys are normal without renal calculi or hydronephrosis. The small bowel is normal without focal dilation or acute inflammation. The colon is normal. No evidence of bowel obstruction. There is a small fat-containing spigelian hernia and left abdominal wall. The stomach appears normal but is incompletely evaluated on this noncontrast examination. There are bilateral hypoattenuating adnexal masses seen. The mass on the right measures 8.1 x 4.1 cm in transverse dimension and the mass of the left measures 6.0 x 4.6 cm in transverse dimension. The masses appear to contain internal septations. Postsurgical changes of a partial hysterectomy are noted. The urinary bladder is normal. No pelvic, retroperitoneal, or mesenteric lymphadenopathy. The abdominal aorta is normal in course and caliber. Bone windows reveal no suspicious lytic or blastic lesions. Postsurgical changes of open reduction internal fixation of the left iliac bone are noted. Procedure Note Promise Javier MD - 09/16/2018 EXAMINATION: Computed tomography of the chest, abdomen and pelvis without intravenous contrast HISTORY: Stomach discomfort. TECHNIQUE: Transaxial computed tomographic images of the chest, abdomen and pelvis were obtained without intravenous contrast according to the standard protocol. COMPARISON: None available. FINDINGS: Chest: The lungs are clear without interstitial lung disease or focal consolidation. No suspicious pulmonary nodules seen. No pleural effusion or pneumothorax. No axillary, supraclavicular, hilar, or mediastinal lymphadenopathy. The heart is normal in size without pericardial effusion. The thoracic aorta and great vessels are normal course and caliber. The pulmonary arteries are normal in caliber. Abdomen/Pelvis: The liver is normal without biliary ductal dilation or focal lesion seen on this noncontrast examination. The gallbladder, adrenal glands, spleen, and pancreas are normal. The kidneys are normal without renal calculi or hydronephrosis. The small bowel is normal without focal dilation or acute inflammation. The colon is normal. No evidence of bowel obstruction. There is a small fat-containing spigelian hernia and left abdominal wall. The stomach appears normal but is incompletely evaluated on this noncontrast examination. There are bilateral hypoattenuating adnexal masses seen. The mass on the right measures 8.1 x 4.1 cm in transverse dimension and the mass of the left measures 6.0 x 4.6 cm in transverse dimension. The masses appear to contain internal septations. Postsurgical changes of a partial hysterectomy are noted. The urinary bladder is normal. No pelvic, retroperitoneal, or mesenteric lymphadenopathy. The abdominal aorta is normal in course and caliber. Bone windows reveal no suspicious lytic or blastic lesions. Postsurgical changes of open reduction internal fixation of the left iliac bone are noted. IMPRESSION: 1. Bilateral adnexal masses are incompletely characterized on this noncontrast examination, concerning for possible primary epithelial ovarian malignancy, and recommend further evaluation with pelvic ultrasound and/or MRI. 2. Postoperative changes of a subtotal hysterectomy. 3. No non-contrast enhanced CT abnormality to explain the patient's stomach discomfort. 4. Clear lungs. No abnormality to explain the patient's shortness of breath. Dictated by: Maxwell Gardner III, M.D. Electronically signed by: Promise Javier M.D. Yeison Springer MD IMG CT PROCEDURES Final Resul t documented in this encounter Visit Diagnoses Diagnosis Stomach discomfort- Primary Dyspepsia and other specified disorders of function of stomach Chest pain, unspecified SOB (shortness of breath) Shortness of breath Stomach discomfort Dyspepsia and other specified disorders of function of stomach Chest pain, unspecified SOB (shortness of breath) Shortness of breath documented in this encounter Care Teams Treadle Cut Off Saw Operator Relationship Specialty Start Date End Date Yeison Springer MD [address] [address] PCP - General 01/09/17 11/25/20 Roel Pena MD [address] [address] PCP - General Endocrinology Diabetes & Metabolism 11/26/20 documented as of this encounter
== END 2025-08-23 10:39 | disposition home or self-care (01) ==
LOC: ANHLAB 10:40
PROVIDERS: PCP Family Medicine; Visit Provider Family Medicine
DX: Z00.00 Encounter for general adult medical examination without abnormal findings (principal); G25.81 Restless legs syndrome; R79.89 Other specified abnormal findings of blood chemistry; E66.9 Obesity, unspecified; R53.83 Other fatigue
CPT/HCPCS: 36415; 80053; 80061; 82172; 82607; 82728; 83540; 83550; 84443; 85025